=== PATIENT | female | born 1955 | race Caucasian/White ===

== ENCOUNTER 2018-04-12 11:58 | Inpatient (IN) | payer MEDICARE, OTHER ==
[~2018-04-12] VITALS: Ht 157.5 cm; Wt 68.6 kg
[~2018-04-12 11:58] MED LIST: DOCU-28 PO; FURO-150 PO; MAGN296S50 PO; SENN25TA27 PO
[2018-04-12 12:43] LABS: BASOPHILS % (AUTO) 0.5 % (0-1); EOSINOPHILS # (AUTO) 0.1 X10'3 (0-0.9); EOSINOPHILS % (AUTO) 1.7 % (0-6); HEMATOCRIT 40.2 % (35.0-45.0); HEMOGLOBIN 13.6 g/dl (12.0-16.0); LYMPHOCYTES # (AUTO) 1.8 X10'3 (1.1-4.8); LYMPHOCYTES % (AUTO) 21.4 % (21-51); MEAN CORPUSCULAR HEMOGLOBIN 31.8 PG (27.0-31.0); MEAN CORPUSCULAR HGB CONC 33.7 % (33.0-36.5); MEAN CORPUSCULAR VOLUME 94.4 FL (78-98); MEAN PLATELET VOLUME 8.1 FL (7.4-10.4); MONOCYTES # (AUTO) 0.5 X10'3 (0-0.9); MONOCYTES % (AUTO) 5.6 % (2-12); NEUTROPHILS # (AUTO) 6.1 X10'3 (1.8-7.7); NEUTROPHILS % (AUTO) 70.8 % (42-75); PLATELET COUNT 179 X10'3 (140-440); RED BLOOD COUNT 4.26 X10'6 (4.20-5.60); RED CELL DISTRIBUTION WIDTH 14.1 % (11.5-14.5); WHITE BLOOD COUNT 8.6 X10'3 (4.5-11.0)
[2018-04-12 12:54] LABS: PARTIAL THROMBOPLASTIN TIME 28 SECONDS (22-32)
[2018-04-12 12:55] LABS: AMMONIA < 10 UMOL/L (11-32)
[2018-04-12 13:02] LABS: LACTIC SEPSIS 0.6 MMOL/L (0.4-2.0)
[2018-04-12 13:09] LABS: ALANINE AMINOTRANSFERASE 19 U/L (12-78); ALBUMIN 2.7 G/DL (3.4-5.0); ALBUMIN/GLOBULIN RATIO 0.7 (1.1-1.5); ALKALINE PHOSPHATASE 85 IU/L (46-116); ANION GAP 5 (8-16); ASPARTATE AMINO TRANSFERASE 18 U/L (10-37); BILIRUBIN,TOTAL 0.6 MG/DL (0.1-1.0); BLOOD UREA NITROGEN 11 MG/DL (7-18); BUN/CREATININE RATIO 8.3 (6.6-38.0); CALCIUM 9.1 MG/DL (8.5-10.1); CHLORIDE 104 MMOL/L (99-107); CREATININE 1.32 MG/DL (0.40-0.90); ETHANOL < 0.010 GM/DL (0.0-0.010); GLUCOSE 85 MG/DL (70-104); MAGNESIUM 1.8 MG/DL (1.5-2.4); SODIUM 140 MMOL/L (135-145); TOTAL CARBON DIOXIDE 31.1 MMOL/L (24-32); TOTAL PROTEIN 6.7 G/DL (6.4-8.2); eGFR 41 ML/MIN
[2018-04-12 13:13] LABS: URINE AMPHETAMINE SCREEN NEGATIVE (Neg); URINE BARBITUATE SCREEN NEGATIVE (Neg); URINE BENZODIAZEPINES SCREEN NEGATIVE (Neg); URINE CANNABINOID SCREEN NEGATIVE (Neg); URINE COCAINE SCREEN NEGATIVE (Neg); URINE METHADONE SCREEN NEGATIVE (Neg); URINE OPIATE SCREEN NEGATIVE (Neg); URINE PHENCYCLIDINE SCREEN NEGATIVE (Neg)
[2018-04-12] MEDS ORDERED: potassium Cl 20 mEq SR tablet PO ONE (13:20)
[2018-04-12 13:27] LABS: ACETAMINOPHEN < 2.0 UG/ML (10-30)
[2018-04-12] MEDS ORDERED: acetaminophen 325mg tablet PO PRN (14:05)
[2018-04-12] MEDS ORDERED: potassium Cl 20 mEq SR tablet PO PRN (14:05)
[2018-04-12] MEDS ORDERED: potassium Cl 40MEQ/NS 500ml 500 ML IV PRN ×2 (14:05)
[2018-04-12] MEDS ORDERED: magnesium 1gm/100ml D5W IVPB 100 ML IV PRN (14:05)
[2018-04-12] MEDS ORDERED: magnesium 4gm in 100ml NS 100 ML IV PRN (14:05)
[2018-04-12] MEDS ORDERED: mag hydrox/Alum hydrox/simeth 30ml oral suspension PO PRN (14:05)
[2018-04-12] MEDS ORDERED: magnesium Cl slow-release 64mg tablet PO PRN (14:05)
[2018-04-12] MEDS ORDERED: ondansetron/PF 4mg/2ml inj IV PRN (14:05)
[2018-04-12] MEDS ORDERED: magnesium hydroxide 30ml (MOM) UD suspension PO PRN (14:05)
[2018-04-12] MEDS: potassium cl 20mEq in 1/2 NS 1,000 ML IV SCH (14:05)
[2018-04-12 14:26] LABS: CLARITY,URINE TURBID (Clear); COLOR,URINE YELLOW (Yellow); GLUCOSE, URINE NEGATIVE (Neg); KETONES,URINE NEGATIVE (Neg); LEUKOCYTE ESTERASE ,URINE NEGATIVE (Neg); NITRITES, URINE NEGATIVE (Neg); OCCULT BLOOD,URINE NEGATIVE (Neg); PROTEIN,URINE TRACE mg/dl (Neg); UA COLLECTION TYPE CLN CATCH MIDSTREAM
[2018-04-12 14:37] LABS: RBC,URINE NONE SEEN /HPF (0-2); WBC,URINE 0-4 /HPF (0-4)
[2018-04-12 14:38] LABS: AMORPHOUS URATES 4+; BACTERIA,URINE NONE SEEN /HPF (Neg); MUCUS STRANDS NONE SEEN /LPF (Neg)
[2018-04-12 14:39] LABS: CAL OXALATE CRYSTALS 3+ /HPF (NEGATIVE); SQUAMOUS EPITHELIAL CELL,UR MODERATE /LPF (FEW)
[2018-04-12] MEDS ORDERED: NO HOME MEDS (17:07)
[2018-04-12 17:16] VITALS: BP 143/68
[2018-04-12 19:20] VITALS: BP 111/55
[2018-04-12] MEDS: potassium Cl 20 mEq SR tablet PO PRN ×2 (19:20→23:46)
[2018-04-12 22:30] VITALS: BP 134/68
[2018-04-13] MEDS: potassium cl 20mEq in 1/2 NS 1,000 ML IV SCH ×3 (01:52→20:05)
[2018-04-13 03:00] VITALS: BP 132/69
[2018-04-13 05:17] LABS: BASOPHILS % (AUTO) 0.3 % (0-1); EOSINOPHILS # (AUTO) 0.2 X10'3 (0-0.9); EOSINOPHILS % (AUTO) 2.3 % (0-6); HEMATOCRIT 40.1 % (35.0-45.0); HEMOGLOBIN 13.5 g/dl (12.0-16.0); LYMPHOCYTES # (AUTO) 1.8 X10'3 (1.1-4.8); LYMPHOCYTES % (AUTO) 19.6 % (21-51); MEAN CORPUSCULAR HEMOGLOBIN 31.6 PG (27.0-31.0); MEAN CORPUSCULAR HGB CONC 33.6 % (33.0-36.5); MEAN PLATELET VOLUME 8.8 FL (7.4-10.4); MONOCYTES # (AUTO) 0.7 X10'3 (0-0.9); MONOCYTES % (AUTO) 7.3 % (2-12); NEUTROPHILS # (AUTO) 6.4 X10'3 (1.8-7.7); NEUTROPHILS % (AUTO) 70.5 % (42-75); PLATELET COUNT 164 X10'3 (140-440); RED BLOOD COUNT 4.27 X10'6 (4.20-5.60); RED CELL DISTRIBUTION WIDTH 13.7 % (11.5-14.5); WHITE BLOOD COUNT 9.1 X10'3 (4.5-11.0)
[2018-04-13 05:49] LABS: ALANINE AMINOTRANSFERASE 16 U/L (12-78); ALBUMIN 2.4 G/DL (3.4-5.0); ALBUMIN/GLOBULIN RATIO 0.6 (1.1-1.5); ALKALINE PHOSPHATASE 84 IU/L (46-116); ANION GAP 6 (8-16); ASPARTATE AMINO TRANSFERASE 16 U/L (10-37); BILIRUBIN,TOTAL 0.3 MG/DL (0.1-1.0); BLOOD UREA NITROGEN 12 MG/DL (7-18); BUN/CREATININE RATIO 10.3 (6.6-38.0); CALCIUM 8.7 MG/DL (8.5-10.1); CHLORIDE 107 MMOL/L (99-107); CREATININE 1.16 MG/DL (0.40-0.90); GLUCOSE 94 MG/DL (70-104); MAGNESIUM 1.6 MG/DL (1.5-2.4); POTASSIUM 4.8 MMOL/L (3.5-5.1); SODIUM 140 MMOL/L (135-145); TOTAL CARBON DIOXIDE 27.1 MMOL/L (24-32); TOTAL PROTEIN 6.1 G/DL (6.4-8.2); eGFR 47 ML/MIN
[2018-04-13] MEDS: K and/or MAG REPLACEMENT MC SCH (08:00)
[2018-04-13] MEDS: furosemide 40mg/4ml inj IV SCH (08:00)
[2018-04-13] MEDS ORDERED: enoxaparin 40mg/0.4ml syringe SQ SCH (08:00)
[2018-04-13 08:30] VITALS: BP 129/69
[2018-04-13] MEDS: enoxaparin 40mg/0.4ml syringe SUBCUT SCH (08:33)
[2018-04-13] MEDS ORDERED: pneumococcal 23-VAL P-sac vacc 25 mcg/0.5ml vial IMVAC ONE (09:00)
[2018-04-13 12:16] VITALS: BP 134/57
[2018-04-13] MEDS: nicotine 21mg patch - 24 hr TD SCH (12:36)
[2018-04-13 15:00] VITALS: BP 148/69
[2018-04-13 19:00] VITALS: BP 125/68
[2018-04-13 23:00] VITALS: BP 138/73
[2018-04-14] MEDS: potassium cl 20mEq in 1/2 NS 1,000 ML IV SCH ×2 (06:05→16:05)
[2018-04-14] MEDS: K and/or MAG REPLACEMENT MC SCH (08:00)
[2018-04-14 08:22] VITALS: BP 146/85
[2018-04-14] MEDS: furosemide 40mg/4ml inj IV SCH (08:26)
[2018-04-14] MEDS: nicotine 21mg patch - 24 hr TD SCH (08:26)
[2018-04-14] MEDS: enoxaparin 40mg/0.4ml syringe SUBCUT SCH (08:27)
[2018-04-14 11:00] VITALS: BP 142/93
[2018-04-14] MEDS ORDERED: haloperidol lactate 5mg/ml inj IM PRN (11:55)
[2018-04-14 18:00] VITALS: BP 147/85
[2018-04-14 23:00] VITALS: BP 112/75
[2018-04-15] MEDS ORDERED: SUMAtriptan 25 MG tablet PO ONE (01:00)
[2018-04-15] MEDS: potassium cl 20mEq in 1/2 NS 1,000 ML IV SCH ×2 (02:05→13:19)
[2018-04-15 03:00] VITALS: BP 108/72
[2018-04-15 06:00] VITALS: BP 109/74
[2018-04-15] MEDS: enoxaparin 40mg/0.4ml syringe SUBCUT SCH (07:49)
[2018-04-15] MEDS: furosemide 40mg/4ml inj IV SCH (07:49)
[2018-04-15] MEDS: nicotine 21mg patch - 24 hr TD SCH (07:50)
[2018-04-15] MEDS: K and/or MAG REPLACEMENT MC SCH (08:00)
[2018-04-15 09:38] LABS: BASOPHILS # (AUTO) 0.1 X10'3 (0-0.2); BASOPHILS % (AUTO) 1.1 % (0-1); EOSINOPHILS # (AUTO) 0.1 X10'3 (0-0.9); EOSINOPHILS % (AUTO) 1.4 % (0-6); HEMATOCRIT 47.3 % (35.0-45.0); HEMOGLOBIN 15.9 g/dl (12.0-16.0); LYMPHOCYTES # (AUTO) 1.8 X10'3 (1.1-4.8); LYMPHOCYTES % (AUTO) 19.5 % (21-51); MEAN CORPUSCULAR HEMOGLOBIN 31.6 PG (27.0-31.0); MEAN CORPUSCULAR HGB CONC 33.7 % (33.0-36.5); MEAN CORPUSCULAR VOLUME 93.8 FL (78-98); MEAN PLATELET VOLUME 8.5 FL (7.4-10.4); MONOCYTES # (AUTO) 0.7 X10'3 (0-0.9); NEUTROPHILS # (AUTO) 6.7 X10'3 (1.8-7.7); PLATELET COUNT 200 X10'3 (140-440); RED BLOOD COUNT 5.04 X10'6 (4.20-5.60); RED CELL DISTRIBUTION WIDTH 14.4 % (11.5-14.5); WHITE BLOOD COUNT 9.5 X10'3 (4.5-11.0)
[2018-04-15 09:56] LABS: ALANINE AMINOTRANSFERASE 25 U/L (12-78); ALBUMIN 2.7 G/DL (3.4-5.0); ALBUMIN/GLOBULIN RATIO 0.6 (1.1-1.5); ALKALINE PHOSPHATASE 88 IU/L (46-116); ANION GAP 7 (8-16); ASPARTATE AMINO TRANSFERASE 23 U/L (10-37); BILIRUBIN,TOTAL 0.5 MG/DL (0.1-1.0); BLOOD UREA NITROGEN 17 MG/DL (7-18); BUN/CREATININE RATIO 12.1 (6.6-38.0); CALCIUM 9.1 MG/DL (8.5-10.1); CHLORIDE 101 MMOL/L (99-107); GLUCOSE 126 MG/DL (70-104); MAGNESIUM 1.9 MG/DL (1.5-2.4); PHOSPHORUS 3.4 MG/DL (2.3-4.5); POTASSIUM 4.1 MMOL/L (3.5-5.1); SODIUM 138 MMOL/L (135-145); TOTAL CARBON DIOXIDE 29.7 MMOL/L (24-32); TOTAL PROTEIN 7.1 G/DL (6.4-8.2); eGFR 38 ML/MIN
[2018-04-15 11:00] VITALS: BP 102/63
[2018-04-15 15:00] VITALS: BP 95/59
[2018-04-15] MEDS ORDERED: NICO-687 TD (15:53)
[2018-04-15] MEDS ORDERED: RIVA1PAT9 TOP (15:53)
== END 2018-04-15 20:49 | disposition home health service (06) | DRG 682 ==
LOC: ER 11:59 → ED HOLD 14:05 → PCU 3S 16:45 → CMPBEDREQ 19:52 → PCU 3S 04-14 10:40
PROVIDERS: ADMIT Internal Medicine; ATTEND Internal Medicine
DX: N17.9 Acute kidney failure, unspecified (principal); G93.40 Encephalopathy, unspecified; E87.6 Hypokalemia; F03.90 Unspecified dementia, unspecified severity, without behavioral disturbance, psychotic disturbance, mood disturbance, and anxiety; I67.1 Cerebral aneurysm, nonruptured; Z60.2 Problems related to living alone; F17.200 Nicotine dependence, unspecified, uncomplicated; Z98.2 Presence of cerebrospinal fluid drainage device; Z78.1 Physical restraint status; Z88.0 Allergy status to penicillin; Z88.2 Allergy status to sulfonamides; Z79.899 Other long term (current) drug therapy; Z86.79 Personal history of other diseases of the circulatory system; Z23 Encounter for immunization
CPT/HCPCS: 36415; 70450; 71045; 80053; 80305; 80320; 80329; 81001; 82140; 83605; 83735; 83880; 84100; 84484; 85025; 85610; 85730; 87040; 87070; 87077; 90732; 93005; 93306; 97116; 97161; 97530; 99285; J1630; J1650; J1940; J7030